=== PATIENT | female | born 1955 | race Caucasian/White ===

== ENCOUNTER → 2016-05-29 | Outpatient (CLI) | payer MEDICARE ==
[~2016-05-29] MED LIST: K-DUR TAB 10 M10 MEQ PO
== END ==
LOC: KOH-I 12:54
DX: R06.02 Shortness of breath (principal); J06.9 Acute upper respiratory infection, unspecified; R91.8 Other nonspecific abnormal finding of lung field; Z88.5 Allergy status to narcotic agent; Z88.1 Allergy status to other antibiotic agents
CPT/HCPCS: 71020

== ENCOUNTER → 2020-04-30 | Outpatient (CLI) | payer MEDICARE, SELFPAY ==
[~2020-04-30] MED LIST changes: +ASPIR 8181 MG PO; +AUGMENTIN 875-1 EACH PO; +ECOTRIN81 MG PO; +ELIQUIS 5 MG TAB5 MG PO; +GLUCOPHAGE1000 MG PO; +GUAIFENESIN ER600 MG PO; +LOPRESSOR 25 MG25 MG PO; +NYSTOP60 GM TOP; +PHENERGAN12.5 MG PR; +PRINIVIL5 MG PO; +PROAIR DIGIHAL90 MCG INH; +PROVENTIL HFA 61 INH INH; +ROBITUSSIN AC480 ML PO; +SULFAMETHOXAZO1 EACH PO; +SYNTHROID200 MCG PO; +ZITHROMAX250 MG PO
== END ==
LOC: ECHO 12:27 → NM 13:00
DX: I20.9 Angina pectoris, unspecified (principal); I70.0 Atherosclerosis of aorta; I34.0 Nonrheumatic mitral (valve) insufficiency; I07.1 Rheumatic tricuspid insufficiency
CPT/HCPCS: ECHO; 78452; 93306; J2785

== ENCOUNTER → 2020-05-01 | Outpatient (CLI) | payer MEDICARE, OTHER | LOC: NM 15:21 | DX: I20.9 Angina pectoris, unspecified (principal) ==

== ENCOUNTER 2020-08-09 13:51 | Emergency (ER) | payer MEDICARE ==
[~2020-08-09 13:51] MED LIST changes: -PROAIR DIGIHAL90 MCG INH
[2020-08-09 15:23] LABS: HEMOGLOBIN 12.8 gm/dl (12.3-15.3); RED BLOOD COUNT 5.13 M/UL (4.00-5.10); WHITE BLOOD COUNT 8.3 K/UL (4.5-11.0)
[2020-08-09 15:47] LABS: BUN/CREATININE RATIO 27 (0-10)
[2020-08-09] MEDS ORDERED: ZITHROMAX250 MG PO (18:05)
[2020-08-09] MEDS ORDERED: PROAIR DIGIHAL90 MCG INH (18:05)
== END 2020-08-09 18:16 | disposition home or self-care (01) ==
LOC: ER1 13:51
PROVIDERS: Physician Assistant Medical
DX: J18.9 Pneumonia, unspecified organism (principal); Z20.822 Contact with and (suspected) exposure to COVID-19; E11.9 Type 2 diabetes mellitus without complications; I50.9 Heart failure, unspecified; E03.9 Hypothyroidism, unspecified; Z90.49 Acquired absence of other specified parts of digestive tract; Z90.89 Acquired absence of other organs; Z88.0 Allergy status to penicillin; Z88.5 Allergy status to narcotic agent; Z88.8 Allergy status to other drugs, medicaments and biological substances
CPT/HCPCS: 0240U; 71045; 80053; 83880; 84484; 85025; 87040; 99285

== ENCOUNTER → 2020-09-13 | Outpatient (CLI) | payer MEDICARE ==
[~2020-09-13] MED LIST changes: +PROAIR DIGIHAL90 MCG INH
[2020-09-13 14:49] LABS: BUN/CREATININE RATIO 33 (0-10)
== END ==
LOC: LAB 13:21
DX: I10 Essential (primary) hypertension (principal)
CPT/HCPCS: 36415; 80048

== ENCOUNTER → 2020-10-14 | Outpatient (CLI) | payer MEDICARE ==
[2020-10-14 14:54] LABS: RED BLOOD COUNT 4.37 M/UL (4.00-5.10); WHITE BLOOD COUNT 10.6 K/UL (4.5-11.0)
[2020-10-14 15:18] LABS: BUN/CREATININE RATIO 20 (0-10)
== END ==
LOC: LAB 12:51
PROVIDERS: Family Medicine
DX: E03.9 Hypothyroidism, unspecified (principal); E83.42 Hypomagnesemia; I10 Essential (primary) hypertension; R11.2 Nausea with vomiting, unspecified
CPT/HCPCS: 36415; 80053; 83735; 84439; 84443; 85027

== ENCOUNTER → 2020-11-13 | Outpatient (CLI) | payer MEDICARE ==
[2020-11-14 11:14] LABS: CREATININE, URINE 12.3 mg/dL (Not Estab.); MICROALB/CREAT RATIO <24 (0-29)
== END ==
LOC: LAB 12:51
PROVIDERS: Internal Medicine Nephrology
DX: R93.89 Abnormal findings on diagnostic imaging of other specified body structures (principal); R80.9 Proteinuria, unspecified; I95.89 Other hypotension; R91.8 Other nonspecific abnormal finding of lung field
CPT/HCPCS: 36415; 71046; 81001; 82043; 82533; 82570; 84156

== ENCOUNTER → 2020-12-06 | Outpatient (CLI) | payer MEDICARE ==
[2020-12-06 12:14] LABS: BUN/CREATININE RATIO 22 (0-10)
== END ==
LOC: MAMO 10-21 15:30
PROVIDERS: Family Medicine
DX: Z12.31 Encounter for screening mammogram for malignant neoplasm of breast (principal); E03.9 Hypothyroidism, unspecified; E55.9 Vitamin D deficiency, unspecified
CPT/HCPCS: 36415; 77063; 77067; 80053; 83735; 84439; 84443

== ENCOUNTER → 2020-12-13 | Outpatient (CLI) | payer MEDICARE | LOC: RT 11:35 | DX: R06.02 Shortness of breath (principal) | CPT/HCPCS: 36600; 82803 ==

== ENCOUNTER → 2020-12-20 | Outpatient (CLI) | payer MEDICARE | LOC: KOH-I 09:05 | DX: R91.8 Other nonspecific abnormal finding of lung field (principal) | CPT/HCPCS: 71250 ==

== ENCOUNTER → 2021-01-07 | Outpatient (CLI) | payer MEDICARE ==
[~2021-01-07] MED LIST changes: +ASPIRIN EC81 MG PO; +ATORVASTATIN CA80 MG PO; +FUROSEMIDE40 MG PO; +ISOSORBIDE MONO30 MG PO; +MAGNESIUM OXID400 M1 PO; +MIRALAX 119 GR119 GM PO; +OZEMPIC0.25 MG/0. SQ; +SPIRONOLACTONE25 MG PO; +SYNTHROID125 MCG PO; -SYNTHROID200 MCG PO; +VITAMIN D31250 MCG PO
[2021-01-07 12:54] LABS: BUN/CREATININE RATIO 30 (0-10)
== END ==
LOC: LAB 11:57
PROVIDERS: Family Medicine
DX: E03.9 Hypothyroidism, unspecified (principal); E83.42 Hypomagnesemia; E11.9 Type 2 diabetes mellitus without complications
CPT/HCPCS: 36415; 80048; 83735; 84439; 84443

== ENCOUNTER 2021-01-08 09:11 | Observation (INO) | payer MEDICARE ==
[~2021-01-08] VITALS: Ht 162.6 cm; Wt 130.6 kg
[~2021-01-08 09:11] MED LIST changes: -ASPIRIN EC81 MG PO; -ATORVASTATIN CA80 MG PO; -FUROSEMIDE40 MG PO; -ISOSORBIDE MONO30 MG PO; -MAGNESIUM OXID400 M1 PO; -MIRALAX 119 GR119 GM PO; -OZEMPIC0.25 MG/0. SQ; -SPIRONOLACTONE25 MG PO; -VITAMIN D31250 MCG PO
[2021-01-08 10:26] LABS: HEMOGLOBIN 14.2 gm/dl (12.3-15.3); RED BLOOD COUNT 4.51 M/UL (4.00-5.10); WHITE BLOOD COUNT 12.6 K/UL (4.5-11.0)
[2021-01-08 10:49] LABS: BUN/CREATININE RATIO 28 (0-10)
[2021-01-08] MEDS ORDERED: SPIRONOLACTONE25 MG PO (14:23)
[2021-01-08] MEDS ORDERED: FUROSEMIDE40 MG PO (14:23)
[2021-01-08] MEDS ORDERED: ISOSORBIDE MONO30 MG PO (14:24)
[2021-01-08] MEDS ORDERED: OZEMPIC0.25 MG/0. SQ (14:24)
[2021-01-08] MEDS ORDERED: ATORVASTATIN CA80 MG PO (14:25)
[2021-01-08] MEDS ORDERED: VITAMIN D31250 MCG PO (14:26)
[2021-01-08] MEDS ORDERED: MAGNESIUM OXID400 M1 PO (14:27)
[2021-01-08] MEDS ORDERED: MIRALAX 119 GR119 GM PO (14:28)
[2021-01-09 07:09] LABS: HEMOGLOBIN 14.1 gm/dl (12.3-15.3); RED BLOOD COUNT 4.53 M/UL (4.00-5.10); WHITE BLOOD COUNT 11.4 K/UL (4.5-11.0)
[2021-01-09 07:44] LABS: BUN/CREATININE RATIO 27 (0-10)
[2021-01-09] MEDS ORDERED: ASPIRIN EC81 MG PO (11:59)
[2021-01-09] MEDS ORDERED: ELIQUIS 5 MG TAB5 MG PO (12:15)
== END 2021-01-09 20:38 | disposition home or self-care (01) ==
LOC: ER1 09:11 → CDU 13:35 → M/S 13:35
PROVIDERS: Student in an Organized Health Care Education/Training Program; ADMIT Internal Medicine
DX: R07.89 Other chest pain (principal); I48.0 Paroxysmal atrial fibrillation; I11.0 Hypertensive heart disease with heart failure; I50.33 Acute on chronic diastolic (congestive) heart failure; I27.20 Pulmonary hypertension, unspecified; I07.1 Rheumatic tricuspid insufficiency; E11.9 Type 2 diabetes mellitus without complications; J44.9 Chronic obstructive pulmonary disease, unspecified; R91.8 Other nonspecific abnormal finding of lung field; G47.33 Obstructive sleep apnea (adult) (pediatric); E03.9 Hypothyroidism, unspecified; E66.01 Morbid (severe) obesity due to excess calories; Z68.42 Body mass index [BMI] 45.0-49.9, adult; Z20.822 Contact with and (suspected) exposure to COVID-19; Z99.81 Dependence on supplemental oxygen; Z79.01 Long term (current) use of anticoagulants; Z79.82 Long term (current) use of aspirin; Z79.899 Other long term (current) drug therapy; Z88.0 Allergy status to penicillin; Z88.1 Allergy status to other antibiotic agents; Z88.2 Allergy status to sulfonamides; Z87.891 Personal history of nicotine dependence
CPT/HCPCS: ECHO; 36415; 71045; 71250; 80053; 80061; 81001; 82550; 82553; 82962; 83036; 83540; 83550; 83735; 83874; 83880; 84439; 84443; 84484; 85025; 85379; 86140; 87040; 87086; 93005; 93306; 99285; G0378; J1940; J2185; U0002

== ENCOUNTER → 2021-02-28 | Outpatient (CLI) | payer MEDICARE, OTHER ==
[~2021-02-28] MED LIST changes: +ASPIRIN EC81 MG PO; +ATORVASTATIN CA80 MG PO; +FUROSEMIDE40 MG PO; +ISOSORBIDE MONO30 MG PO; +MAGNESIUM OXID400 M1 PO; +MIRALAX 119 GR119 GM PO; +OZEMPIC0.25 MG/0. SQ; +SPIRONOLACTONE25 MG PO; +VITAMIN D31250 MCG PO
[2021-02-28 14:10] LABS: BUN/CREATININE RATIO 18 (0-10)
== END ==
LOC: LAB 12:46
PROVIDERS: Family Medicine
DX: E87.6 Hypokalemia (principal); E83.42 Hypomagnesemia
CPT/HCPCS: 36415; 80048; 83735

== ENCOUNTER → 2021-03-07 | Outpatient (CLI) | payer MEDICARE, OTHER ==
[~2021-03-07] MED LIST changes: +CLARITIN10 MG PO; +NITROSTAT0.4 MG SL; +SOTALOL80 MG PO
== END ==
LOC: CATH 07:30
DX: I48.19 Other persistent atrial fibrillation (principal); I11.0 Hypertensive heart disease with heart failure; I50.30 Unspecified diastolic (congestive) heart failure; I27.20 Pulmonary hypertension, unspecified; E78.2 Mixed hyperlipidemia; E66.01 Morbid (severe) obesity due to excess calories; E11.42 Type 2 diabetes mellitus with diabetic polyneuropathy; J45.40 Moderate persistent asthma, uncomplicated; E03.9 Hypothyroidism, unspecified; G47.33 Obstructive sleep apnea (adult) (pediatric); Z87.891 Personal history of nicotine dependence; Z88.2 Allergy status to sulfonamides; Z88.5 Allergy status to narcotic agent; Z88.0 Allergy status to penicillin; Z79.01 Long term (current) use of anticoagulants; Z79.4 Long term (current) use of insulin; Z79.899 Other long term (current) drug therapy; Z20.822 Contact with and (suspected) exposure to COVID-19
CPT/HCPCS: 82962; 92960; 93005; J1200; J1742; J2250; J2310; J3010; J7040

== ENCOUNTER → 2021-10-20 | Outpatient (CLI) | payer MEDICARE, OTHER ==
[2021-10-20 15:22] LABS: HEMOGLOBIN 15.2 gm/dl (12.3-15.3); RED BLOOD COUNT 4.93 M/UL (4.00-5.10); WHITE BLOOD COUNT 12.8 K/UL (4.5-11.0)
[2021-10-20 15:47] LABS: BUN/CREATININE RATIO 24 (0-10)
[2021-10-21 10:15] LABS: CREATININE, URINE 10.8 mg/dL (Not Estab.)
== END ==
LOC: LAB 13:56
PROVIDERS: Family Medicine; Internal Medicine Nephrology
DX: E11.9 Type 2 diabetes mellitus without complications (principal); R80.9 Proteinuria, unspecified; E78.2 Mixed hyperlipidemia; E53.8 Deficiency of other specified B group vitamins; E03.9 Hypothyroidism, unspecified; E55.9 Vitamin D deficiency, unspecified
CPT/HCPCS: 36415; 80053; 80061; 82043; 82570; 82607; 83036; 83735; 84156; 84439; 84443; 85027

== ENCOUNTER → 2021-12-17 | Outpatient (CLI) | payer MEDICARE, OTHER | LOC: RAD 14:11 | DX: J20.9 Acute bronchitis, unspecified (principal); E11.9 Type 2 diabetes mellitus without complications | CPT/HCPCS: 71046 ==